=== PATIENT | male | born 1950 | race Caucasian/White ===

== ENCOUNTER 2018-03-24 23:51 | Observation (INO) | payer MEDICARE, OTHER ==
[~2018-03-24] VITALS: Ht 185.4 cm; Wt 115.7 kg
[~2018-03-24 23:51] MED LIST: ASPI81CH PO; CYCL10 PO; LISI20 PO; NIFE30ER PO; OXYACE5T PO
[2018-03-25] MEDS ORDERED: METF500C PO (00:03)
[2018-03-25 01:16] LABS: BASOPHILS ABSOLUTE AUTO 0.03 K/mm3 (0.00-0.23); BASOPHILS PERCENT AUTO 0 % (0-2); EOSINOPHILS ABSOLUTE AUTO 0.07 K/mm3 (0.00-0.68); EOSINOPHILS PERCENT AUTO 1 % (0-6); Hematocrit 34.4 % (37.0-53.0); Hemoglobin 11.9 g/dL (13.5-17.5); IMMATURE GRAN ABSOLUTE AUTO 0.01 K/mm3 (0.00-0.10); IMMATURE GRAN PERCENT AUTO 0 % (0-1); LYMPHOCYTES ABSOLUTE AUTO 1.42 K/mm3 (0.84-5.20); LYMPHOCYTES PERCENT AUTO 18 % (21-46); MONOCYTES ABSOLUTE AUTO 0.74 K/mm3 (0.16-1.47); MONOCYTES PERCENT AUTO 10 % (4-13); Mean Corpuscular HGB Conc 34.6 g/dL (31.5-36.5); Mean Corpuscular Volume 98 fL (80-100); Mean Platelet Volume 11.1 fL (9.1-12.4); NEUTROPHILS ABSOLUTE AUTO 5.51 K/mm3 (1.96-9.15); NEUTROPHILS PERCENT AUTO 71 % (41-73); Platelet Count 165 K/mm3 (150-400); RDW Coefficient Variation 11.6 % (11.7-14.2); RDW Standard Deviation 41.2 fL (35.1-46.3); White Blood Cell Count 7.78 K/mm3 (4.00-11.30)
[2018-03-25 01:28] LABS: Alanine Aminotransfer (ALT/SGP 19 U/L (12-78); Albumin, Blood 3.1 g/dL (3.4-5.0); Alk Phos 46 U/L (50-136); Anion Gap 9 mmol/L (6-16); Aspartate Aminotrans (AST/SGOT 17 U/L (12-37); Bilirubin, Total 0.3 mg/dL (0.1-1.0); Blood Urea Nitrogen 36 mg/dL (8-24); Bun/Creatinine Ratio 39.6 (12.0-20.0); CO2, Blood 29 mmol/L (21-32); Calcium, Blood 8.4 mg/dL (8.5-10.1); Chloride, Blood 101 mmol/L (98-108); Creatinine, Blood 0.91 mg/dL (0.60-1.20); Globulin, Blood 3.2 g/dL (2.2-4.0); Glomerular Filtration Rate >60 (60-); Glucose, Blood 168 mg/dL (70-99); Potassium, Blood 4.1 mmol/L (3.5-5.5); Sodium, Blood 139 mmol/L (136-145); Total Protein, Blood 6.3 g/dL (6.4-8.2)
[2018-03-25 01:31] LABS: International Normalized Ratio 1.24; Prothrombin Time Results 12.9 Sec (9.7-11.5)
--- NOTE | 2018-03-25 03:44 | NUR ---
transfer report from [facility] Keenan on 67 year old Male being admitted with sycopal episode and upper gi bleed. hx of ulcers and taking nsaid ibuprofen for back injury. full code status. await admission.
[2018-03-25 05:23] LABS: Hematocrit 33.7 % (37.0-53.0); Hemoglobin 11.5 g/dL (13.5-17.5); Mean Corpuscular HGB 33.4 pg (26.0-34.0); Mean Corpuscular HGB Conc 34.1 g/dL (31.5-36.5); Mean Corpuscular Volume 98 fL (80-100); Mean Platelet Volume 10.5 fL (9.1-12.4); Platelet Count 146 K/mm3 (150-400); RDW Coefficient Variation 11.5 % (11.7-14.2); RDW Standard Deviation 40.9 fL (35.1-46.3); Red Blood Cell Count 3.44 M/mm3 (4.30-5.90); White Blood Cell Count 7.64 K/mm3 (4.00-11.30)
--- NOTE | 2018-03-25 05:25 | NUR ---
67 year old Male admitted with near syncopal episode with dark stool while sitting on toliet around 2244. he had recently strained lower lt spine and having localized pain to that area and had taken about 8 doses of 600 mg ibuprofen in last week. hx of full syncope [address] Meehan in to see PT rx protonix gtt and IV fluids and GI consult called to [facility]. Tele monitor applied and scds. Valentina at bedside and supportive. Advanced directive located full code status verified.
[2018-03-25 05:46] LABS: Alanine Aminotransfer (ALT/SGP 18 U/L (12-78); Alk Phos 46 U/L (50-136); Anion Gap 7 mmol/L (6-16); Aspartate Aminotrans (AST/SGOT 8 U/L (12-37); Bilirubin, Total 0.3 mg/dL (0.1-1.0); Blood Urea Nitrogen 36 mg/dL (8-24); Bun/Creatinine Ratio 41.9 (12.0-20.0); CO2, Blood 26 mmol/L (21-32); Calcium, Blood 8.1 mg/dL (8.5-10.1); Chloride, Blood 107 mmol/L (98-108); Creatinine, Blood 0.86 mg/dL (0.60-1.20); Globulin, Blood 3.1 g/dL (2.2-4.0); Glomerular Filtration Rate >60 (60-); Glucose, Blood 142 mg/dL (70-99); Potassium, Blood 4.3 mmol/L (3.5-5.5); Sodium, Blood 140 mmol/L (136-145); Total Protein, Blood 6.1 g/dL (6.4-8.2)
[2018-03-25] MEDS ORDERED: IBUP600 PO (06:25)
[2018-03-25 11:09] LABS: Hematocrit 34.4 % (37.0-53.0); Hemoglobin 11.6 g/dL (13.5-17.5)
--- NOTE | 2018-03-25 14:20 | NUR ---
PT TRANSPORTED TO [facility]. AGREESW WITH PLANNED PROCEDURE.
--- NOTE | 2018-03-25 14:25 | NUR ---
LUNG SOUNDS CLEAR.
--- NOTE | 2018-03-25 14:33 | NUR ---
REPORT TO DEREJE DIXON RN.
--- NOTE | 2018-03-25 14:43 | NUR ---
PATIENT OFF FLOOR FOR EGD IN DAY SURGERY.
--- NOTE | 2018-03-25 15:00 | NUR ---
03/25/18 1459 Amrit Robins 1452 PATIENT DETERMINED TO BE ASA APPROPRIATE FOR PROPOFOL SEDATION PRIOR TO START OF PROCEDURE BY 3-LEAD EKG REVIEWED WITH PHYSICIAN PRIOR TO START OF PROCEDURE.PATIENT CONFIRMS NPO STATUS AND AGREES WITH SCHEDULED PROCEDURE.History, Chart, Medications and Allergies reviewed before start of procedure.MONITOR INTACT WITH CONTINUOUS PULSE OXIMETRY AND INTERMITTENT BP.O2 VIA N/C INTACT THROUGHOUT SEDATION/PROCEDURE.Bite Block Placed
--- NOTE | 2018-03-25 15:45 | NUR ---
PATIENT ARRIVED BACK FROM DAY SURGERY. REPORT RECEIVED FROM JORDY BARNETT.
[2018-03-25 16:59] LABS: Hematocrit 36.2 % (37.0-53.0); Hemoglobin 12.3 g/dL (13.5-17.5)
--- NOTE | 2018-03-25 19:25 | NUR ---
PATIENT A/OX4, UP INDEPENDENTLY IN ROOM. EGD TODAY SHOWED LARGE ULCER. PATIENT CONTINUES ON CLEAR DIET AND PROTONIX GTT. CONTINUES TO REPORTS PAIN IN LOWER BACK, CONTROLLED BEST WITH DILAUDID. LIDOCAINE PATCH ALSO IN PLACE. VSS, LUNGS CLEAR, ON RA. IV TO L AC WNL. DENIES ANY NAUSEA OR ABDOMINAL PAIN. CALM AND COOPERATIVE WITH CARE, CALLS APPROPRIATELY FOR ASSISTANCE.
[2018-03-25 23:34] LABS: Hematocrit 32.4 % (37.0-53.0)
[2018-03-26 04:57] LABS: Hematocrit 32.2 % (37.0-53.0)
--- NOTE | 2018-03-26 06:12 | NUR ---
SUMMARY: A/OX4, CALLS APPROPRIATELY AND INDEPENDENT IN ROOM. PT C/O CHRONIC BACK PAIN W/TRAMADOL AND DILUADID RECIEVED PRN FOR TOLERABLE CONTROL. LIDOCAINE PATCH WAS REMOVED AND ICE OFFERED BUT DENIED. PT STILL HASN'T HAD A BM AND REMAINS ON PROTONIX GTT. NO EVIDENCE BLEEDING AND H&H'S REMAIN STABLE. LARGE ULCER NOTED ON EGD. PT REPORTS ABDO DISTENSION AND PASSING FLATUS BUT DENIED PAIN/NAUSEA. PT TOLERATING CLEAR LIQ'S W/O DIFFICULTY. NO ACUTE CHANGES, VSS/AFEBRILE. LIKELY D/C TODAY. WILL MONITOR AND REPORT TO DAY RN.
[2018-03-26] MEDS ORDERED: PANT40 PO (10:36)
[2018-03-26] MEDS ORDERED: DOCU100 PO (10:36)
[2018-03-26] MEDS ORDERED: TRAM50 PO (10:37)
--- NOTE | 2018-03-26 19:36 | NUR ---
PT DISCHARGED THE PT VERBALIZED UNDERSTANDING OF THE DC INSTRUCTIONS, PERSCRIPTIONS FAXED TO [facility] REQUESTED, THE PT APPEARED TO BE BREATHING EASILY ON RA, THE PT HAD A SMALL BM PRIOR TO DC , PER DOCTOR REQUEST BEFORE DISCHARGE, THE PT WAS TRANSFERED VIA WHEELCHAIR ACCOMPANIED BY [facility]
== END 2018-03-26 13:21 | disposition home or self-care (01) ==
LOC: ER 23:51 → MEDS 23:52 → ER 03-25 03:59 → MEDS 03-25 03:59 → ENPENDDIS 03-26 10:32 → MEDS 03-26 13:21
PROVIDERS: Emergency Medicine; Student in an Organized Health Care Education/Training Program; ADMIT Internal Medicine
PROC: 0DB68ZX Excision of Stomach, Via Natural or Artificial Opening Endoscopic, Diagnostic (ICD-10-PCS; principal; 2018-03-25 16:30)
PROC: 0DB48ZX Excision of Esophagogastric Junction, Via Natural or Artificial Opening Endoscopic, Diagnostic (ICD-10-PCS; principal; 2018-03-25 16:30)
PROC: 0DB98ZX Excision of Duodenum, Via Natural or Artificial Opening Endoscopic, Diagnostic (ICD-10-PCS; principal; 2018-03-25 16:30)
DX: K29.80 Duodenitis without bleeding (principal); K26.9 Duodenal ulcer, unspecified as acute or chronic, without hemorrhage or perforation; K29.70 Gastritis, unspecified, without bleeding; K22.2 Esophageal obstruction; I10 Essential (primary) hypertension; R55 Syncope and collapse; R73.03 Prediabetes; M54.5 Low back pain; Z79.82 Long term (current) use of aspirin; Z79.899 Other long term (current) drug therapy; Z88.5 Allergy status to narcotic agent
CPT/HCPCS: 36415; 80053; 82272; 82947; 85014; 85018; 85025; 85027; 85610; 85730; 86850; 86900; 86901; 88305; 88342; 93005; 93010; 96361; 96365; 96366; 96374; 96375; 96376; 99285-25; C9113; G0378; J1170; J2405; J7030; J7120

== ENCOUNTER → 2018-05-23 | Outpatient (CLI) | payer MEDICARE, OTHER ==
[~2018-05-23] MED LIST changes: +DOCU100 PO; +IBUP600 PO; +METF500C PO; +PANT40 PO; +TRAM50 PO
== END | disposition home or self-care (01) ==
LOC: LAB 16:17 → LAB SHORT 16:17 → LAB FUT 11-26 12:45
DX: Z13.818 Encounter for screening for other digestive system disorders (principal); K26.0 Acute duodenal ulcer with hemorrhage
CPT/HCPCS: 87338